=== PATIENT | male | born 2000 | race Caucasian/White ===

== ENCOUNTER 2024-02-19 21:35 | Emergency (ER) | payer OTHER, SELFPAY ==
--- NOTE | 2024-02-19 21:41 | DI.RAD.S_ITS ---
PROCEDURE: XR CHEST 1V INDICATIONS: tachycardia TECHNIQUE: One view of the chest was acquired. COMPARISON: [facility], CR, XR SHOULDER LT MIN 2V, 02/19/2024, 21:42. FINDINGS: Surgical changes and devices: None. Lungs and pleura: Abnormal interstitial prominence is seen. No focal infiltrates are seen. No pneumothorax or pleural effusions are seen. Low lung volumes are noted. This causes a crowded appearance to the lung markings and limits evaluation. Mediastinum: Mediastinal contours appear normal. Heart size is normal. Bones and chest wall: No suspicious bony lesions. Overlying soft tissues appear unremarkable. IMPRESSION: Abnormal interstitial prominence. Please consider pulmonary edema. Artifact is also possible in this patient with low lung volumes. Dictated by: Jaime Rubin M.D. on 02/19/2024 at 21:31 Approved by: Jaime Rubin M.D. on 02/19/2024 at 21:32
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
[2024-02-19 21:42] VITALS: BP 143/90; PULSE 89; RESP 18; TEMP 37.4; O2SAT 100; BMI 21.4
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
[2024-02-19 21:49] LABS: Add Manual Diff / Slide Review NO; Basophils Absolute Auto 0 /uL (0-100); Basophils Percent Auto 0.4 % (0-2); Eosinophils Absolute Auto 100 /uL (0-450); Eosinophils Percent Auto 0.6 % (2-4); Hematocrit 41.5 % (41-53); Hemoglobin 14.5 g/dL (13.5-17.5); Lymphocytes Absolute Auto 2000 /uL (1100-4500); Lymphocytes Percent Auto 16.8 % (25-40); Mean Corpuscular Hemoglobin 31.5 PG (26-34); Mean Corpuscular Volume 89.9 fL (80-100); Monocytes Absolute Auto 1200 /uL (0-900); Monocytes Percent Auto 10.2 % (3-14); Neutrophils Absolute Auto 8500 /uL (1500-7000); Platelet Count 230 X10^3/uL (150-400); Red Blood Cell Count 4.62 X10^6/uL (4.5-5.9); Red Cell Distribution Width 12.6 % (11.6-14.8); White Blood Cell Count 11.9 X10^3/uL (4.5-11.0)
[2024-02-19 22:07] LABS: Alanine Aminotransferase 17 IU/L (<50); Albumin 4.9 g/dL (3.5-5.0); Albumin Globulin Ratio 1.6 (1.0-2.8); Alkaline Phosphatase 106 U/L (38-126); Aspartate Aminotransferase 26 IU/L (17-59); Bilirubin Total 0.9 mg/dL (0.2-1.3); Blood Urea Nitrogen 13 mg/dL (9-20); Calcium 9.7 mg/dL (8.4-10.2); Carbon Dioxide 26 mmol/L (22-32); Chloride 107 mmol/L (98-107); Estimated Glomerular Filt Rate > 60 mL/min (>60); Glucose 110 mg/dL (70-100); HEMOLYSIS < 15 (0-50); Lipase 86 U/L (23-300); Potassium 3.6 mmol/L (3.4-5.1); Sodium 140 mmol/L (137-145); Total Protein 7.9 g/dL (6.3-8.2)
[2024-02-19] MEDS: SODIUM CHLORIDE 0.9% 1,000 ML 125 ML IV (22:11)
--- NOTE | 2024-02-19 22:12 | EKG_ITS ---
[address] [id number] Test Date: 2024-02-19 Pat Name: Gary Clark Department: [facility] Room: Gender: Male Inventory Coordinator: : 2000 Requested By: Order Number: [id number] Reading MD: Jorge Mosley Measurements Intervals [place] Rate: 88 P: 21 AR: 120 QRS: 24 QRSD: 80 T: 25 QT: 356 QTc: 430 Interpretive Statements Normal sinus rhythm with sinus arrhythmia Electronically Signed On 02-21-2024 8:46:35 PDT by Jorge Mosley
[2024-02-19 22:24] VITALS: BP 134/78; PULSE 78; RESP 15; O2SAT 100
[2024-02-19 22:27] VITALS: PULSE 90; RESP 22; O2SAT 100
[2024-02-19 22:30] VITALS: BP 135/80; PULSE 90; RESP 26; O2SAT 100
== END 2024-02-19 22:51 | disposition short-term general hospital (02) ==
PROVIDERS: Emergency Provider Emergency Medicine
DX: T70.3XXA Caisson disease [decompression sickness], initial encounter (principal); Y93.15 Activity, underwater diving and snorkeling
CPT/HCPCS: 36415; 71045; 73030; 80053; 83690; 85025; 93005; 99284